=== PATIENT | male | born 1960 | race Hispanic/Latino ===

== ENCOUNTER 2016-05-19 16:44 | Outpatient (CLI) | payer OTHER ==
[2016-05-19 19:23] LABS: AST (SGOT) 18 U/L (5-34); Anion Gap 16 mmol/L (10-20); Bilirubin, Total 0.7 mg/dL (0.2-1.2); Calcium 9.2 mg/dL (7.8-10.44); Carbon Dioxide 24 mmol/L (22-29); Chloride 107 mmol/L (98-107); Protein, Total 7.4 g/dL (6.0-8.3)
[2016-05-19 19:49] LABS: Hemoglobin A1c 5.9 % (4.0-6.0)
[2016-05-19 19:51] LABS: ALT (SGPT) 21 U/L (0-55); Alkaline Phosphatase 93 U/L (40-150); BUN (Urea Nitrogen) 16 mg/dL (8.4-25.7); Calc. Creatinine Clearance 0 mL/min (70-130); Estimated GFR-MDRD 76
[2016-05-19 20:03] LABS: Globulin 3.2 g/dL (2.4-3.5)
[2016-05-19 20:05] LABS: LDL Cholesterol, Calculated 113 mg/dL
== END 2016-05-19 16:45 | disposition home or self-care (01) ==
LOC: NAV SJFMSP 16:44
PROVIDERS: ATTEND Family Medicine
DX: E11.9 Type 2 diabetes mellitus without complications (principal)
CPT/HCPCS: 80053; 80061; 83036